=== PATIENT | male | born 1945 | race Two or more races ===

== ENCOUNTER 2016-12-23 06:58 | Day surgery (SDC) | payer MEDICARE, BC ==
[2016-12-23] VITALS (10 sets, daily range): BP systolic 120–153; BP diastolic 58–76
[~2016-12-23] VITALS: Ht 180.3 cm; Wt 96.6 kg
[~2016-12-23 06:58] MED LIST: ASPIRIN81 MG ORAL; CARVEDILOL6.25 MG ORAL; LOSARTAN POTASS50 MG ORAL; NEXIUM40 MG ORAL; PLAVIX75 MG ORAL; SIMVASTATIN20 MG ORAL
[2016-12-23] MEDS ORDERED: LR 1000ml 1,000 ML IV ONE (07:00)
--- NOTE | 2016-12-23 07:57 | Short Stay Surgery H&P ---
History of Present Illness History of Present Illness Chief Complaint History of gastric cancer for follow up SCOTT Vazquez is a 71 year old male who was admitted on for Gastric cancer follow up. Patient History Allergies: Coded Allergies: No Known Allergies (Unverified , 11/08/13) PAST MEDICAL HISTORY: (1) Hyperlipidemia (2) Hypertension Past Surgeries: Social History: Medication History Scheduled Aspirin* (Aspirin*), 81 MG ORAL DAILY, (Reported) Carvedilol* (Carvedilol*), 6.25 MG ORAL DAILY, (Reported) Esomeprazole Magnesium (Nexium), 40 MG ORAL DAILY, (Reported) Losartan Potassium* (Losartan Potassium*), 50 MG ORAL DAILY, (Reported) Simvastatin (Zocor), 20 MG ORAL BEDTIME, (Reported) Discontinued Medications Clopidogrel Bisulfate* (Plavix*), 75 MG ORAL DAILY, (Reported) Discontinued Reason: MD discontinued med Review of Systems Cardiovascular: Reports: no symptoms Respiratory: Reports: no symptoms Skeletal: Reports: no symptoms Gastrointestinal: Reports: no symptoms Genitourinary: Reports: no symptoms Neurologic: Reports: no symptoms Endocrine: Reports: no symptoms Hematologic: Reports: no symptoms Physical Exam Vital Signs Last Vital Signs Date Time Temp Pulse Resp B/P Pulse Ox O2 Delivery O2 Flow Rate FiO2 12/23/16 07:38 98.1 55 18 153/76 98 Room Air Skin: normal HENT: normal Heart: normal Lungs: normal Abdomen: normal Extremities: normal Genitourinary: normal Plan Plan of Care Upper Gi endoscopy and biopsy Preop Interventions None. Summary of Findings See the reports Final Diagnosis: Attestation Are the patient's medical conditions optimized for surgery? Attestation Response: yes IZZY ZARAGOZA December 23, 2016 07:57
--- NOTE | 2016-12-23 07:58 | Pre-Procedure Note/Attestation ---
Pre-Procedure Note/Attestation Complete Prior to Procedure Planned Procedure: left Procedure Narrative: the endoscopic examination of the upper GI tract for checking the recurrence of gastric cancer Indications for Procedure Pre-Operative Diagnosis: R/O Gastric CA. Attestation I attest that I discussed the nature of the procedure; its benefits; risks and complications; and alternatives (and the risks and benefits of such alternatives ), prior to the procedure, with the patient (or the patient's legal patient portal representative). I attest that, if there was a reasonable possibility of needing a blood transfusion, the patient (or the patient's legal patient portal representative) was given the [place] [employer] standardized written summary, pursuant to the [place] Blood Safety Act ([place] Health and Safety Code # 1645, as amended). I attest that I re-evaluated the patient just prior to the surgery and that there has been no change in the patient's H&P, except as documented below: MILA,SAID December 23, 2016 07:58
--- NOTE | 2016-12-23 08:03 | Short Stay Surgery H&P ---
History of Present Illness History of Present Illness SCOTT Vazquez is a 71 year old male who was admitted on for GERD Patient History Allergies: Coded Allergies: No Known Allergies (Unverified , 11/08/13) PAST MEDICAL HISTORY: Past Surgeries: (1) History of partial gastrectomy Social History: Medication History Scheduled Aspirin* (Aspirin*), 81 MG ORAL DAILY, (Reported) Carvedilol* (Carvedilol*), 6.25 MG ORAL DAILY, (Reported) Esomeprazole Magnesium (Nexium), 40 MG ORAL DAILY, (Reported) Losartan Potassium* (Losartan Potassium*), 50 MG ORAL DAILY, (Reported) Simvastatin (Zocor), 20 MG ORAL BEDTIME, (Reported) Discontinued Medications Clopidogrel Bisulfate* (Plavix*), 75 MG ORAL DAILY, (Reported) Discontinued Reason: discontinued med Physical Exam Vital Signs Last Vital Signs Date Time Temp Pulse Resp B/P Pulse Ox O2 Delivery O2 Flow Rate FiO2 12/23/16 07:38 98.1 55 18 153/76 98 Room Air Plan Attestation Are the patient's medical conditions optimized for surgery? IZZY ZARAGOZA December 23, 2016 08:03
[2016-12-23] MEDS ORDERED: LR 1000ml ONE (09:00)
[2016-12-23] MEDS ORDERED: Propofol 10mg/ml 20ml IV ONE (09:00)
[2016-12-23] MEDS ORDERED: Lidocaine 1% MPF 10mg/ml 5ml ONE (09:00)
--- NOTE | 2016-12-23 09:24 | Anethesia Preoperative Eval ---
Anesthesia Pre-op PMH/ROS General Date of Evaluation: December 23, 2016 Anesthesiologist: Star ASA Score: ASA 3 Mallampati Score Class I : Soft palate, uvula, fauces, pillars visible Class II: Soft palate, uvula, fauces visible Class III: Soft palate, base of uvula visible Class IV: Only hard plate visible Mallampati Classification: Class II Surgeon: Robert Diagnosis: Kimric Cncer Surgical Procedure: EGD Anesthesia History: none Family History: no anesthesia problems Allergies: Coded Allergies: No Known Allergies (Unverified , 11/08/13) Medications: see eMAR Past Medical History Cardiovascular: Reports: CAD, HTN, [place], Denies: arrhythmia, other, valve dz Pulmonary: Denies: COPD, ALEXX, asthma, other Gastrointestinal/Genitourinary: Reports: GERD, other - gastric cancer, Denies: CRI, ESRD Neurologic/Psychiatric: Denies: CVA, TIA, dementia, depression/anxiety, other Endocrine: Reports: DM, Denies: hypothyroidism, other, steroids HEENT: Denies: [place] (L), [place] (R), cataract (L), cataract (R), glaucoma, other Hematology/Immune: Denies: DVT, anemia, bleeding disorder, other Musculoskeletal/Integumentary: Denies: DDD, DJD, OA, RA, edema, other PSxH Narrative: gastric cancer excision Anesthesia Pre-op Phys. Exam Physician Exam Last Vital Signs Date Time Temp Pulse Resp B/P Pulse Ox O2 Delivery O2 Flow Rate FiO2 12/23/16 07:38 98.1 55 18 153/76 98 Room Air Constitutional: NAD Cardiovascular: RRR Respiratory: CTA Airway Exam Mallampati Score: Class II MO: full ROM: full Teeth: intact Anesthesia Pre-op A/P Labs see chart Studies Pre-op Studies: EKG - sr Risk Assessment & Plan Assessment: ASA III Plan: MAC Status Change Before Surgery: No Pre-Antibiotics Drug: N/A BEBETO CAR M.D. December 23, 2016 09:24
--- NOTE | 2016-12-23 09:28 | Endoscopy Procedure Note ---
Endoscopy Procedure Note Indication for Procedure: History of Gastric cancer Procedures Performed: EGD - Moderate size Hiatal Hernia. 2 mm white plaque over pyloric channel with mild sorrounding edema biopsied, looked benign, otherwise completely normal upper GI endoscopy with mutiple biopsies obtained from different parts of the gastric tissue with no evidence of recurrence of gastric ulcer/tumor. Specimen: yes Pt Tolerated Procedure Well: Yes Estimated Blood Loss: none Anesthesiologist: Dr. Graves Anesthesia: moderate sedation Medication Given: see anesthesia record Implant(s) used?: No 50 yrs or older w/o bx or poly: Not Applicable 10yrs. F/U not recommended: Not Applicable If not recommended, why?: Med reason:<3 yrs.: System Reason:<3 yrs.: Last colonoscopy >= to 3yrs: IZZY Ball December 23, 2016 09:28
--- NOTE | 2016-12-23 09:29 | Discharge Instructions ---
Discharge Instructions Discharge Instructions Follow up with: Visit the doctor in office after 2 weeks. For Congestive Heart Failure Reminder Report to your physician any weight gain of 5 pounds or more in one week. IZZY ZARAGOZA December 23, 2016 09:29
--- NOTE | 2016-12-23 09:35 | Immediate Post-Op Evaluation ---
Immediate Post-Op Evalulation Immediate Post-Op Evalulation Procedure: EGD Date of Evaluation: December 23, 2016 Time of Evaluation: 09:35 IV Fluids: 400 Blood Products: 0 Estimated Blood Loss: 0 Urinary Output: 0 Blood Pressure Systolic: 120 Blood Pressure Diastolic: 58 Pulse Rate: 57 Respiratory Rate: 16 O2 Sat by Pulse Oximetry: 100 Temperature (Fahrenheit): 97.7 Pain Score (1-10): 0 Nausea: No Vomiting: No Complications 0 Patient Status: awake, reacts, patent, none Hydration Status: adequate Drug: N/A BEBETO CAR M.D. December 23, 2016 09:35
--- NOTE | 2016-12-23 10:52 | 48 Hour Post Anesthesia Eval ---
Post Anesthesia Evaluation Procedure: EGD Date of Evaluation: December 23, 2016 Time of Evaluation: 10:10 Blood Pressure Systolic: 135 0: 75 Pulse Rate: 58 Respiratory Rate: 14 Temperature (Fahrenheit): 97.3 O2 Sat by Pulse Oximetry: 98 Airway: patent Nausea: No Vomiting: No Pain Intensity: 0 Hydration Status: adequate Cardiopulmonary Status: at baseline Mental Status/LOC: patient returned to baseline Post-Anesthesia Complications: 0 Follow-up care needed: ready to discharge BEBETO CAR M.D. December 23, 2016 10:52
--- NOTE | 2016-12-23 16:33 | Operative Note - Dictated ---
DATE OF OPERATION: 12/23/2016 PROCEDURE: Esophagogastroduodenoscopy with multiple biopsies. PREOPERATIVE DIAGNOSIS: History of gastric cancer with recent multiple rule out recurrence of gastric cancer. POSTOPERATIVE DIAGNOSES: 1. Moderate-sized hiatal hernia. 2. A 2 mm white plaque over the pyloric channel with surrounding edema and erythema, looking benign, biopsied otherwise completely normal upper gastrointestinal endoscopy. Multiple biopsies were obtained from different parts of the gastric cavity. MEDICATION USED: Dr. Graves. INSTRUMENT: GIF Olympus upper GI video endoscope. DESCRIPTION OF PROCEDURE: The patient after arriving endoscopy unit, was told about risks and benefits of the procedure, which he accepted and signed the informed consent. At this time, he was put on the left lateral decubitus position. After adequate IV sedation, scope gently passed through the cricopharyngeal area, was lodged into the upper esophagus, and gradually advanced towards gastroesophageal junction. The entire length of the esophagus looked normal. No evidence of any stricture, inflammatory process, ulceration, exudate etc. was found. At this point, scope reached towards the gastroesophageal junction which looked normal however there was evidence of moderate-sized hiatal hernia without Levine's. Finally the scope was advanced into the gastric cavity and after insufflation of air gradually the areas of the fundus and the body and the antrum were examined which revealed normal findings without any particular abnormalities such as ulcers, tumors, or polyps etc. Multiple biopsies from different areas of the stomach including the fundus and the body and the antrum was obtained and subsequently the scope was advanced toward the pyloric channel, which incidentally scope encountered presence of 2 millimeter white lesion which looked benign and surrounded by erythema and edema over the 12 o'clock of pyloric channel. This was subsequently totally removed by biopsy and the specimen was sent to pathology lab. However there was no any other conditions or pathology found in the area of the antrum suggesting of recurrence of cancer. At this point, the scope was gradually advanced toward the first and second portion of duodenum which looked completely normal. At this time, the scope was pulled out and the procedure was terminated. The patient tolerated the procedure well and left the endoscopy room in a good condition. Said Hedy Jones DR: Brigitte JOB#: [id number] CC:
== END 2016-12-23 11:00 | disposition home or self-care (01) ==
LOC: GAS 06:58
DX: Z85.028 Personal history of other malignant neoplasm of stomach (principal); K29.00 Acute gastritis without bleeding; K29.50 Unspecified chronic gastritis without bleeding; K21.9 Gastro-esophageal reflux disease without esophagitis; K44.9 Diaphragmatic hernia without obstruction or gangrene; I25.10 Atherosclerotic heart disease of native coronary artery without angina pectoris; I10 Essential (primary) hypertension; E78.5 Hyperlipidemia, unspecified; I25.2 Old myocardial infarction; E11.9 Type 2 diabetes mellitus without complications; Z90.3 Acquired absence of stomach [part of]; Z79.82 Long term (current) use of aspirin
CPT/HCPCS: 43239; 82962; J2704; J7120; 94003; 94150